=== PATIENT | male | born 1935 | race Caucasian/White ===

== ENCOUNTER → 2017-01-17 | Outpatient (CLI) | payer MEDICARE ==
[~2017-01-17] MED LIST: AMIO100T4 PO; AMLO5TAB2 PO; ATOR80TA75 PO; B12 PO; BICA50TA PO; CARV-39 PO; CARV25TA12 PO; CARV3.122 PO; CHOL200040 PO; COPP2CAP PO; DUTA1CPM4 PO; FURO-92 PO; FURO-93 PO; FURO20TA3 PO; HYDR-3240 PO; IPRA3AMP NPPB; LEVO100T5 PO; LEVO25TA4 PO; LEVO500T8 PO; LOSA100T6 PO; METH4TAB2 PO; MULT-717 PO; NAPR500T3 PO; NITR0.4T SL; OMEP40CA6 PO; OXYB5TAB7 PO; OXYC5CAP4 PO; PRED5TAB PO; TIOT18CA INH; potassium PO
[2017-01-17 14:48] LABS: BLOOD UREA NITROGEN 22 mg/dL (7-18)
[2017-01-17 14:51] LABS: ASPARTATE AMINO TRANSFERASE 15 U/L (15-37)
[2017-01-17 14:56] LABS: HIV 1&2 ANTIBODY SCREEN Nonreactive (Nonreactive); HIV-1 p24 ANTIGEN Nonreactive (Nonreactive)
== END | disposition home or self-care (01) ==
LOC: STAR 13:02
PROVIDERS: ATTEND Orthopaedic Surgery
DX: Z01.818 Encounter for other preprocedural examination (principal); M17.12 Unilateral primary osteoarthritis, left knee; Z79.899 Other long term (current) drug therapy
CPT/HCPCS: 36415; 80053; 81001; 85025; 86703; 87077; 87081; 87086; 87147; 87899; 93005; G0435

== ENCOUNTER → 2017-02-06 | Outpatient (CLI) | payer MEDICARE | END | disposition home or self-care (01) | LOC: RAD 14:08 | PROVIDERS: ATTEND Nurse Practitioner Family | DX: N20.0 Calculus of kidney (principal); N28.1 Cyst of kidney, acquired | CPT/HCPCS: 74176 ==

== ENCOUNTER → 2017-03-13 | Outpatient (CLI) | payer MEDICARE ==
[~2017-03-13] MED LIST changes: +ATOR-2 PO; -ATOR80TA75 PO; +OXYC5CAP2 PO; -OXYC5CAP4 PO
== END | disposition home or self-care (01) ==
LOC: CFH 14:24
PROVIDERS: ATTEND Internal Medicine Cardiovascular Disease
DX: J84.10 Pulmonary fibrosis, unspecified (principal)
CPT/HCPCS: 71020

== ENCOUNTER 2017-04-16 06:13 | Inpatient (IN) | payer MEDICARE ==
[~2017-04-16] VITALS: Ht 175.3 cm; Wt 96.6 kg
[2017-04-16] MEDS ORDERED: VANCOMYCIN PMX 1GM/200ML 200 ML IV STA (06:38)
[2017-04-16] MEDS ORDERED: LIDOCAINE 1%, 2ML ONE (06:41)
[2017-04-16] MEDS ORDERED: KETOROLAC 60 MG/2 ML ONE (06:52)
[2017-04-16] MEDS ORDERED: TRANEXAMIC ACID 100 MG/ML, 10ML ONE (06:52)
[2017-04-16] MEDS ORDERED: EPINEPHRINE 1 MG/ML, 1ML ONE (06:53)
[2017-04-16] MEDS ORDERED: SODIUM CHLORIDE 0.9% 50 ML ONE (06:53)
[2017-04-16] MEDS ORDERED: ROPIvacaine/PF 0.2%, 20 ML ONE (06:53)
[2017-04-16] MEDS ORDERED: BACITRACIN 50,000 UNIT ONE (06:53)
[2017-04-16] MEDS ORDERED: morphine SULFATE/PF 1 MG/ML, 10ML ONE (06:53)
[2017-04-16] MEDS ORDERED: VANCOMYCIN 1,000 MG ONE (06:53)
[2017-04-16] MEDS ORDERED: FENTANYL PF 250 MCG/5ML ONE (07:09)
[2017-04-16] MEDS ORDERED: MIDAZOLAM 1 MG/ML, 2ML ONE (07:09)
[2017-04-16] MEDS ORDERED: LACTATED RINGERS 1,000 ML IV SCH (07:12)
[2017-04-16] MEDS ORDERED: LIDOCAINE 1%, 2ML SQ PRN (07:30)
[2017-04-16] MEDS ORDERED: METOPROLOL 1 MG/ML, 5ML ONE (07:40)
[2017-04-16] MEDS ORDERED: DIPHENHYDRAMINE 50 MG CAPSULE PO PRN (08:00)
[2017-04-16] MEDS ORDERED: LORazepam 2 MG/ML, 1ML IVPush PRN (08:00)
[2017-04-16] MEDS ORDERED: ONDANSETRON 2MG/ML, 2ML IVPush PRN (08:00)
[2017-04-16] MEDS ORDERED: TRANEXAMIC ACID 100 MG/ML, 10ML IVPB ONE (08:00)
[2017-04-16] MEDS ORDERED: ACETAMINOPHEN 325 MG TABLET PO PRN ×2 (08:00→08:30)
[2017-04-16] MEDS ORDERED: morphine SULFATE 10 MG/ML, 1ML IVPush PRN (08:00)
[2017-04-16] MEDS ORDERED: ZOLPIDEM 5MG TABLET PO PRN (08:00)
[2017-04-16] MEDS ORDERED: hydrALAzine 20 MG/ML, 1ML IV PRN (08:30)
[2017-04-16] MEDS ORDERED: HYDROmorphone 1 MG/ML, 1ML IV PRN (08:30)
[2017-04-16] MEDS ORDERED: OXYcodone 5 MG/5 ML ORAL.SOL UDC PO PRN (08:30)
[2017-04-16] MEDS ORDERED: PROMETHAZINE 25 MG/ML, 1ML IV PRN (08:30)
[2017-04-16] MEDS ORDERED: METOPROLOL 1 MG/ML, 5ML IV PRN (08:30)
[2017-04-16] MEDS ORDERED: ALBUTEROL/IPRATROPIUM 2.5MG/0.5MG, 3 ML NPPB PRN (08:30)
[2017-04-16] MEDS ORDERED: PROPOFOL 10 MG/ML, 20ML ONE (08:35)
[2017-04-16] MEDS ORDERED: ONDANSETRON 2MG/ML, 2ML ONE (08:35)
[2017-04-16] MEDS ORDERED: SUCCINYLCHOLINE 20 MG/ML, 10ML ONE (08:35)
[2017-04-16] MEDS ORDERED: ROCURONIUM 10 MG/ML ONE (08:35)
[2017-04-16] MEDS ORDERED: DEXAMETHASONE 4 MG/ML, 1ML ONE (08:35)
[2017-04-16] MEDS ORDERED: GLYCOPYRROLATE 0.2MG/1ML, 5ML ONE (08:35)
[2017-04-16] MEDS ORDERED: NEOSTIGMINE 1 MG/ML, 10ML ONE (08:35)
[2017-04-16] MEDS ORDERED: CEFAZOLIN 1,000 MG ONE (08:35)
[2017-04-16] MEDS ORDERED: HYDROmorphone 1 MG/ML, 1ML ONE ×2 (08:55→10:02)
[2017-04-16] MEDS ORDERED: ACETAMINOPHEN 650 MG/20.3 ML UDC ONE (10:01)
[2017-04-16] MEDS ORDERED: FENTANYL PF 100 MCG/2ML ONE (10:02)
[2017-04-16] MEDS ORDERED: OXYcodone 5 MG/5 ML ORAL.SOL UDC ONE (10:02)
[2017-04-16] MEDS: FENTANYL PF 100 MCG/2ML IV PRN ×2 (10:05→10:29)
[2017-04-16] MEDS ORDERED: TRANEXAMIC ACID 1,000 MG in SODIUM CHLORIDE 0.9% 100 ML IV ONE (10:30)
[2017-04-16] MEDS ORDERED: hydrALAzine 20 MG/ML, 1ML ONE (10:36)
[2017-04-16 11:58] VITALS: BP 119/65
[2017-04-16] MEDS: HYDROmorphone 1 MG/ML, 1ML IV PRN ×2 (13:12→15:39)
[2017-04-16] MEDS: D5%-0.45% NACL 1,000 ML IV SCH ×3 (13:15→19:51)
[2017-04-16] MEDS ORDERED: NITROGLYCERIN 0.4 MG BOTTLE (25 TABS) SL PRN (13:30)
[2017-04-16 14:00] VITALS: BP 127/70
[2017-04-16] MEDS: CEFAZOLIN PMX 1GM/50ML 50 ML IVPB SCH (16:54)
[2017-04-16] MEDS: OXYBUTYNIN CHLORIDE 5 MG TABLET PO SCH ×2 (16:58→21:27)
[2017-04-16] MEDS: CARVEDILOL 25 MG TABLET PO SCH (18:53)
[2017-04-16 19:56] VITALS: BP 168/78
[2017-04-16] MEDS: OXYcodone/APAP 7.5/325MG TABLET PO PRN (19:58)
[2017-04-16] MEDS ORDERED: ATORVASTATIN 80 MG TABLET PO SCH (21:00)
[2017-04-17 00:02] VITALS: BP 129/72
[2017-04-17] MEDS: D5%-0.45% NACL 1,000 ML IV SCH ×3 (03:00→13:00)
[2017-04-17] MEDS: OXYcodone/APAP 7.5/325MG TABLET PO PRN ×4 (04:02→14:40)
[2017-04-17 04:07] VITALS: BP 125/56
[2017-04-17] MEDS: CARVEDILOL 25 MG TABLET PO SCH (05:28)
[2017-04-17] MEDS ORDERED: LEVOTHYROXINE 100 MCG TABLET PO SCH (06:00)
[2017-04-17] MEDS: ALBUTEROL/IPRATROPIUM 2.5MG/0.5MG, 3 ML NPPB SCH ×3 (06:45→14:00)
[2017-04-17 07:18] VITALS: BP 130/67
[2017-04-17] MEDS ORDERED: ASPIRIN 325 MG TABLET EC PO SCH (08:00)
[2017-04-17] MEDS ORDERED: VANCOMYCIN PMX 1GM/200ML 200 ML IVPB ONE (08:00)
[2017-04-17] MEDS: CEFAZOLIN PMX 1GM/50ML 50 ML IVPB SCH ×2 (08:23)
[2017-04-17] MEDS: OXYBUTYNIN CHLORIDE 5 MG TABLET PO SCH (08:25)
[2017-04-17] MEDS ORDERED: CHOLECALCIFEROL 1,000 UNIT TABLET PO SCH (09:00)
[2017-04-17] MEDS ORDERED: DUTASTERIDE 0.5 MG CAPSULE PO SCH (09:00)
[2017-04-17] MEDS ORDERED: FUROSEMIDE 20 MG TABLET PO SCH (09:00)
[2017-04-17] MEDS ORDERED: BICALUTAMIDE 50 MG TABLET PO SCH (09:00)
[2017-04-17] MEDS ORDERED: AMIODARONE 200 MG TABLET PO SCH (09:00)
[2017-04-17] MEDS ORDERED: AMLODIPINE 5 MG TABLET PO SCH (09:00)
[2017-04-17] MEDS ORDERED: TAMSULOSIN 0.4 MG CAP.ER.24H PO SCH (09:00)
[2017-04-17] MEDS ORDERED: DOCUSATE 100 MG CAPSULE PO SCH (09:00)
[2017-04-17] MEDS ORDERED: CYANOCOBALAMIN 1,000 MCG TABLET PO SCH (09:00)
[2017-04-17] MEDS ORDERED: LOSARTAN 50MG TABLET PO SCH (09:00)
[2017-04-17] MEDS ORDERED: MULTIVITAMINS/MINERALS TABLET PO SCH (09:00)
[2017-04-17] MEDS ORDERED: OXYC-302 PO (14:58)
[2017-04-17 16:17] VITALS: BP 139/69
== END 2017-04-17 16:30 | disposition home or self-care (01) | DRG 470 ==
LOC: ORIP 06:13 → 4NOR 11:37
PROVIDERS: ADMIT Orthopaedic Surgery; ATTEND Orthopaedic Surgery
PROC: 0SRD0J9 Replacement of Left Knee Joint with Synthetic Substitute, Cemented, Open Approach (ICD-10-PCS; principal; 2017-04-16 07:30)
DX: M17.12 Unilateral primary osteoarthritis, left knee (principal); J96.10 Chronic respiratory failure, unspecified whether with hypoxia or hypercapnia; I50.22 Chronic systolic (congestive) heart failure; Z87.891 Personal history of nicotine dependence
CPT/HCPCS: 36415; 85018; 94640; C1713; J0171; J0690; J1100; J1170; J1885; J2250; J2274; J2405; J2704; J2710; J2795; J3010; J3370; J3490; J7620; C1776; J0330; J0360; J7120

== ENCOUNTER 2018-04-02 17:41 | Observation (INO) | payer MEDICARE ==
[~2018-04-02] VITALS: Ht 175.3 cm; Wt 99.0 kg
[~2018-04-02 17:41] MED LIST changes: +AMLO-150 PO; -AMLO5TAB2 PO; -BICA50TA PO; +BICA50TA5 PO; +EZET10TA18 PO; +FLUT1BLS3 INH; +HYDR5TAB2 PO; -IPRA3AMP NPPB; +IPRA3AMP30 NPPB; -LOSA100T6 PO; +LOSA100T7 PO; +NAPR-685 PO; -NAPR500T3 PO; +OXYC-302 PO
[2018-04-02] MEDS ORDERED: SODIUM CHLORIDE FLUSH 10ML SYR IVF ONE (18:00)
[2018-04-02 18:12] LABS: BASOPHILS # (AUTO) 0.02 x10^3/uL (0-0.1); BASOPHILS % (AUTO) 0 % (0-1); EOSINOPHILS # (AUTO) 0.15 x10^3/uL (0-0.4); EOSINOPHILS % (AUTO) 3 % (1-7); LYMPHOCYTES # (AUTO) 0.83 x10^3/uL (1-3.4); LYMPHOCYTES % (AUTO) 14 % (22-44); MD NO; MEAN CORPUSCULAR HEMOGLOBIN 30.9 pg (27.5-34.5); MEAN CORPUSCULAR HGB CONC 33.2 g/dL (33.2-36.2); MEAN CORPUSCULAR VOLUME 92.9 fL (81-97); MEAN PLATELET VOLUME 7.5 fL (7.4-10.4); MONOCYTES # (AUTO) 0.57 x10^3/uL (0.2-0.8); MONOCYTES % (AUTO) 9 % (2-9); NEUTROPHILS # (AUTO) 4.54 x10^3/uL (1.8-6.8); NEUTROPHILS % (AUTO) 74 % (42-75); PLATELET COUNT 315 x10^3/uL (130-400); RED BLOOD COUNT 3.95 x10^6/uL (4.38-5.82)
[2018-04-02 18:23] LABS: ALANINE AMINOTRANSFERASE 22 U/L (12-78); ALBUMIN 3.6 g/dL (3.4-5.0); ANION GAP 6 mmol/L (5-15); CALCIUM 8.7 mg/dL (8.5-10.1); CHLORIDE 106 mmol/L (98-107); CREATININE 1.08 mg/dL (0.7-1.3)
[2018-04-02 18:26] LABS: ALKALINE PHOSPHATASE 110 U/L (45-117); BILIRUBIN,TOTAL 0.3 mg/dL (0.2-1.0); TOTAL PROTEIN 7.7 g/dL (6.4-8.2)
[2018-04-02] MEDS ORDERED: CEFTAZIDIME PMX 2 GM/50ML 50 ML IV SCH (19:00)
[2018-04-02] MEDS ORDERED: SODIUM CHLORIDE 0.9% 1,000 ML IV SCH ×2 (19:45→20:30)
[2018-04-02] MEDS: CEFTAZIDIME PMX 2 GM/50ML 50 ML IV SCH (19:56)
[2018-04-02] MEDS ORDERED: NITROGLYCERIN 0.4 MG BOTTLE (25 TABS) SL PRN (20:00)
[2018-04-02] MEDS ORDERED: POLYETHYLENE GLYCOL 17 GM PACKET PO PRN (20:00)
[2018-04-02] MEDS ORDERED: ACETAMINOPHEN 325 MG TABLET PO PRN (20:00)
[2018-04-02] MEDS ORDERED: ONDANSETRON 2MG/ML, 2ML IVPush PRN (20:00)
[2018-04-02] MEDS: PLEASE ENTER HEIGHT MC SCH (21:00)
[2018-04-02] MEDS: ATORVASTATIN 80 MG TABLET PO SCH (21:00)
[2018-04-02 21:07] LABS: CULTURE INDICATED? YES; MICROSCOPIC AUTO
[2018-04-02 21:10] VITALS: BP 149/69
[2018-04-02] MEDS: HEPARIN 5,000 UNITS/ML, 1ML SQ SCH (21:20)
[2018-04-02] MEDS: CARVEDILOL 25 MG TABLET PO SCH (21:44)
[2018-04-03 01:39] VITALS: BP 155/72
[2018-04-03] MEDS: CEFTAZIDIME PMX 2 GM/50ML 50 ML IV SCH ×3 (03:07→19:11)
[2018-04-03] MEDS: PLEASE ENTER HEIGHT MC SCH ×4 (03:11→23:41)
[2018-04-03] MEDS: LEVOTHYROXINE 112 MCG TABLET PO SCH (06:06)
[2018-04-03] MEDS: HEPARIN 5,000 UNITS/ML, 1ML SQ SCH ×3 (06:06→21:11)
[2018-04-03 07:36] VITALS: BP 172/79
[2018-04-03] MEDS: CARVEDILOL 25 MG TABLET PO SCH ×2 (08:39→21:10)
[2018-04-03] MEDS: LOSARTAN 50MG TABLET PO SCH (08:39)
[2018-04-03] MEDS: DUTASTERIDE 0.5 MG CAPSULE PO SCH (08:39)
[2018-04-03] MEDS: TAMSULOSIN 0.4 MG CAP.ER.24H PO SCH (08:39)
[2018-04-03] MEDS: AMIODARONE 200 MG TABLET PO SCH (08:39)
[2018-04-03] MEDS: AMLODIPINE 5 MG TABLET PO SCH (08:40)
[2018-04-03] MEDS: EZETIMIBE 10 MG TABLET PO SCH (08:40)
[2018-04-03] MEDS: MULTIVITAMINS/MINERALS TABLET PO SCH (08:40)
[2018-04-03] MEDS ORDERED: TAMSULOSIN HCL PO SCH (09:00)
[2018-04-03] MEDS ORDERED: DUTASTERIDE PO SCH (09:00)
[2018-04-03] MEDS: (Fluticasone/Umeclidin/Vilanter (Trelegy Ellipta 100-62.5-25) INH SCH (09:00)
[2018-04-03] MEDS ORDERED: [UNRECOGNIZED DRUG - OTHER] PO SCH (09:00)
[2018-04-03] MEDS ORDERED: hydrALAzine 20 MG/ML, 1ML IV PRN (11:00)
[2018-04-03 12:44] VITALS: BP 122/66
[2018-04-03 18:47] VITALS: BP 149/70
[2018-04-03] MEDS: ATORVASTATIN 80 MG TABLET PO SCH (19:09)
[2018-04-04 01:39] VITALS: BP 157/68
[2018-04-04] MEDS: CEFTAZIDIME 2,000 MG in SODIUM CHLORIDE 0.9% 50 ML IVPB SCH ×2 (02:31→11:43)
[2018-04-04] MEDS: ALBUTEROL/IPRATROPIUM 2.5MG/0.5MG, 3 ML NPPB PRN ×2 (02:49→22:35)
[2018-04-04] MEDS: LEVOTHYROXINE 112 MCG TABLET PO SCH (05:27)
[2018-04-04] MEDS: HEPARIN 5,000 UNITS/ML, 1ML SQ SCH ×2 (05:27→16:51)
[2018-04-04 05:40] LABS: BASOPHILS # (AUTO) 0.04 x10^3/uL (0-0.1); BASOPHILS % (AUTO) 1 % (0-1); EOSINOPHILS # (AUTO) 0.23 x10^3/uL (0-0.4); EOSINOPHILS % (AUTO) 5 % (1-7); LYMPHOCYTES # (AUTO) 0.99 x10^3/uL (1-3.4); LYMPHOCYTES % (AUTO) 22 % (22-44); MD NO; MEAN CORPUSCULAR HEMOGLOBIN 30.7 pg (27.5-34.5); MEAN CORPUSCULAR HGB CONC 33.3 g/dL (33.2-36.2); MEAN CORPUSCULAR VOLUME 92.4 fL (81-97); MEAN PLATELET VOLUME 8.1 fL (7.4-10.4); MONOCYTES # (AUTO) 0.43 x10^3/uL (0.2-0.8); MONOCYTES % (AUTO) 10 % (2-9); NEUTROPHILS # (AUTO) 2.83 x10^3/uL (1.8-6.8); NEUTROPHILS % (AUTO) 63 % (42-75); PLATELET COUNT 279 x10^3/uL (130-400); RED BLOOD COUNT 3.93 x10^6/uL (4.38-5.82)
[2018-04-04 05:42] LABS: CHLORIDE 105 mmol/L (98-107)
[2018-04-04 06:01] LABS: ANION GAP 8 mmol/L (5-15); CALCIUM 8.9 mg/dL (8.5-10.1); CREATININE 1.04 mg/dL (0.7-1.3)
[2018-04-04 07:44] VITALS: BP 176/82
[2018-04-04] MEDS: AMLODIPINE 5 MG TABLET PO SCH ×2 (08:31→20:47)
[2018-04-04] MEDS: MULTIVITAMINS/MINERALS TABLET PO SCH (08:31)
[2018-04-04] MEDS: TAMSULOSIN 0.4 MG CAP.ER.24H PO SCH (08:31)
[2018-04-04] MEDS: LOSARTAN 50MG TABLET PO SCH (08:31)
[2018-04-04] MEDS: CARVEDILOL 25 MG TABLET PO SCH ×2 (08:32→20:47)
[2018-04-04] MEDS: (Fluticasone/Umeclidin/Vilanter (Trelegy Ellipta 100-62.5-25) INH SCH (08:32)
[2018-04-04] MEDS: AMIODARONE 200 MG TABLET PO SCH (08:32)
[2018-04-04] MEDS: DUTASTERIDE 0.5 MG CAPSULE PO SCH (08:33)
[2018-04-04] MEDS: EZETIMIBE 10 MG TABLET PO SCH (08:34)
[2018-04-04 12:55] VITALS: BP 137/73
[2018-04-04] MEDS: PLEASE ENTER HEIGHT MC SCH ×2 (13:00→21:00)
[2018-04-04] MEDS ORDERED: KETOROLAC 30 MG/1 ML IVPush ONE (16:00)
[2018-04-04 20:16] VITALS: BP 144/71
[2018-04-04] MEDS: ATORVASTATIN 80 MG TABLET PO SCH (20:47)
[2018-04-05] MEDS: HEPARIN 5,000 UNITS/ML, 1ML SQ SCH ×2 (00:24→08:30)
[2018-04-05 01:15] VITALS: BP 148/75
[2018-04-05] MEDS: PLEASE ENTER HEIGHT MC SCH (05:00)
[2018-04-05 06:03] LABS: ANION GAP 7 mmol/L (5-15); CALCIUM 8.7 mg/dL (8.5-10.1); CHLORIDE 103 mmol/L (98-107); CREATININE 0.88 mg/dL (0.7-1.3)
[2018-04-05 06:05] LABS: BASOPHILS # (AUTO) 0.08 x10^3/uL (0-0.1); BASOPHILS % (AUTO) 2 % (0-1); EOSINOPHILS # (AUTO) 0.22 x10^3/uL (0-0.4); EOSINOPHILS % (AUTO) 4 % (1-7); LYMPHOCYTES # (AUTO) 0.89 x10^3/uL (1-3.4); LYMPHOCYTES % (AUTO) 18 % (22-44); MD NO; MEAN CORPUSCULAR HEMOGLOBIN 31.3 pg (27.5-34.5); MEAN CORPUSCULAR HGB CONC 33.6 g/dL (33.2-36.2); MEAN CORPUSCULAR VOLUME 93.1 fL (81-97); MEAN PLATELET VOLUME 7.9 fL (7.4-10.4); MONOCYTES # (AUTO) 0.54 x10^3/uL (0.2-0.8); MONOCYTES % (AUTO) 11 % (2-9); NEUTROPHILS # (AUTO) 3.29 x10^3/uL (1.8-6.8); NEUTROPHILS % (AUTO) 66 % (42-75); PLATELET COUNT 300 x10^3/uL (130-400); RED BLOOD COUNT 3.76 x10^6/uL (4.38-5.82); RED CELL DISTRIBUTION WIDTH 14.6 % (9.4-14.8)
[2018-04-05] MEDS: LEVOTHYROXINE 112 MCG TABLET PO SCH (06:41)
[2018-04-05 07:18] VITALS: BP 147/73
[2018-04-05] MEDS: DUTASTERIDE 0.5 MG CAPSULE PO SCH (09:00)
[2018-04-05] MEDS: AMLODIPINE 5 MG TABLET PO SCH (09:00)
[2018-04-05] MEDS: (Fluticasone/Umeclidin/Vilanter (Trelegy Ellipta 100-62.5-25) INH SCH (09:00)
[2018-04-05] MEDS: TAMSULOSIN 0.4 MG CAP.ER.24H PO SCH (09:08)
[2018-04-05] MEDS: MULTIVITAMINS/MINERALS TABLET PO SCH (09:08)
[2018-04-05] MEDS: EZETIMIBE 10 MG TABLET PO SCH (09:09)
[2018-04-05] MEDS: CARVEDILOL 25 MG TABLET PO SCH (09:09)
[2018-04-05] MEDS: AMIODARONE 200 MG TABLET PO SCH (09:09)
[2018-04-05] MEDS: LOSARTAN 50MG TABLET PO SCH (09:09)
[2018-04-05] MEDS ORDERED: KETOROLAC 30 MG/1 ML IVPush ONE (09:30)
== END 2018-04-05 11:35 | disposition home or self-care (01) ==
LOC: ED 17:58 → INTOOBSV 19:06 → EDIP 19:06 → SUATTDRO 19:34 → 3NE 20:30 → DCLOUNGE 04-05 11:22
PROVIDERS: ADMIT Hospitalist; ATTEND Hospitalist
DX: B96.5 Pseudomonas (aeruginosa) (mallei) (pseudomallei) as the cause of diseases classified elsewhere (principal); R82.71 Bacteriuria; I10 Essential (primary) hypertension; E03.9 Hypothyroidism, unspecified; J44.9 Chronic obstructive pulmonary disease, unspecified; I25.10 Atherosclerotic heart disease of native coronary artery without angina pectoris; D64.9 Anemia, unspecified; I25.2 Old myocardial infarction; N40.0 Benign prostatic hyperplasia without lower urinary tract symptoms; N39.0 Urinary tract infection, site not specified; Z85.46 Personal history of malignant neoplasm of prostate; Z99.81 Dependence on supplemental oxygen; Z85.51 Personal history of malignant neoplasm of bladder; Z87.891 Personal history of nicotine dependence; Z87.11 Personal history of peptic ulcer disease; Z92.3 Personal history of irradiation; Z79.899 Other long term (current) drug therapy; Z87.440 Personal history of urinary (tract) infections
CPT/HCPCS: 36415; 71045; 74176; 80048; 80053; 81001; 84145; 85025; 87077; 87086; 87186; 93005; 94640; 96365; 96366; 96372; 96375; 96376; 97161; 97165; 99285; G0378; J0713; J1644; J1885; J7030; J7620; 96374

== ENCOUNTER 2018-04-30 18:30 | Inpatient (IN) | payer MEDICARE ==
[~2018-04-30] VITALS: Ht 175.3 cm; Wt 100.4 kg
[~2018-04-30 18:30] MED LIST changes: -AMLO-150 PO; +AMLO5TAB7 PO
[2018-04-30] MEDS ORDERED: DIPH,PERTUSS(ACELL),TET VAC/PF 0.5 ML IM-VACC ONE ×2 (19:00→19:04)
[2018-04-30] MEDS ORDERED: SODIUM CHLORIDE FLUSH 10ML SYR IVF ONE (19:00)
[2018-04-30] MEDS ORDERED: AMPICILLIN/SULBACTAM 3 GM in SODIUM CHLORIDE 0.9% 100 ML IV ONE (19:00)
[2018-04-30] MEDS ORDERED: SODIUM CHLORIDE 0.9% 1,000ML IVBOLUS ONE (19:00)
[2018-04-30 19:28] LABS: BASOPHILS # (AUTO) 0.02 x10^3/uL (0-0.1); BASOPHILS % (AUTO) 0 % (0-1); EOSINOPHILS # (AUTO) 0.07 x10^3/uL (0-0.4); EOSINOPHILS % (AUTO) 1 % (1-7); LYMPHOCYTES % (AUTO) 5 % (22-44); MD NO; MEAN CORPUSCULAR HEMOGLOBIN 31.3 pg (27.5-34.5); MEAN CORPUSCULAR HGB CONC 33.9 g/dL (33.2-36.2); MEAN CORPUSCULAR VOLUME 92.5 fL (81-97); MEAN PLATELET VOLUME 7.5 fL (7.4-10.4); MONOCYTES # (AUTO) 0.69 x10^3/uL (0.2-0.8); MONOCYTES % (AUTO) 5 % (2-9); NEUTROPHILS % (AUTO) 90 % (42-75); PLATELET COUNT 332 x10^3/uL (130-400); RED BLOOD COUNT 4.25 x10^6/uL (4.38-5.82); RED CELL DISTRIBUTION WIDTH 14.7 % (9.4-14.8)
[2018-04-30 19:40] LABS: ALANINE AMINOTRANSFERASE 22 U/L (12-78); ALBUMIN 3.6 g/dL (3.4-5.0); ANION GAP 8 mmol/L (5-15); CALCIUM 8.9 mg/dL (8.5-10.1); CHLORIDE 101 mmol/L (98-107)
[2018-04-30 19:42] LABS: ALKALINE PHOSPHATASE 129 U/L (45-117); BILIRUBIN,TOTAL 0.7 mg/dL (0.2-1.0)
[2018-04-30 21:56] VITALS: BP 166/78
[2018-04-30] MEDS ORDERED: VANCOMYCIN PMX 1GM/200ML 200 ML IV ONE (22:00)
[2018-04-30] MEDS ORDERED: HYDROmorphone 2 MG/ML, 1ML IVPush PRN (22:00)
[2018-04-30] MEDS ORDERED: ACETAMINOPHEN 325 MG TABLET PO PRN (22:00)
[2018-04-30] MEDS ORDERED: POLYETHYLENE GLYCOL 17 GM PACKET PO PRN (22:00)
[2018-04-30] MEDS ORDERED: PROMETHAZINE 25 MG/ML, 1ML IM PRN (22:00)
[2018-04-30] MEDS ORDERED: GABAPENTIN 300 MG CAPSULE PO PRN (22:00)
[2018-04-30] MEDS ORDERED: OXYcodone IR 5MG TABLET PO PRN (22:00)
[2018-04-30] MEDS ORDERED: hydrALAzine 20 MG/ML, 1ML IVPush PRN (22:00)
[2018-04-30] MEDS ORDERED: LABETALOL 5MG/ML, 20ML IVPush PRN (22:00)
[2018-04-30] MEDS ORDERED: VANCOMYCIN PER PHARMACY MC PRN (22:00)
[2018-04-30] MEDS ORDERED: ONDANSETRON ODT 4 MG PO PRN (22:00)
[2018-04-30] MEDS ORDERED: ONDANSETRON 2MG/ML, 2ML IVPush PRN (22:00)
[2018-04-30] MEDS ORDERED: BISACODYL 10 MG SUPP PR PRN (22:00)
[2018-04-30] MEDS ORDERED: NITROGLYCERIN 0.4 MG BOTTLE (25 TABS) SL PRN (22:30)
[2018-04-30 22:32] LABS: FREE T4 (FREE THYROXINE) 0.96 ng/dL (0.76-1.46); HEMOGLOBIN A1C 6.4 % (4.2-6.3); THYROID STIMULATING HORMONE 3.27 mIU/L (0.358-3.740)
[2018-04-30] MEDS: SODIUM CHLORIDE 0.9% 1,000 ML IV SCH (22:51)
[2018-04-30] MEDS: HYDROcodone/APAP 5/325 TABLET PO PRN (22:51)
[2018-04-30 22:57] LABS: HCT (SEDRATE) 39.3 % (39.2-51.8)
[2018-04-30] MEDS: PIPERACILLIN/TAZO/PMX 3.375GM 50 ML IV SCH (23:15)
[2018-04-30] MEDS: OMEPRAZOLE 20 MG CAPSULE.DR PO SCH (23:20)
[2018-04-30] MEDS: OXYBUTYNIN CHLORIDE 5 MG TABLET PO SCH (23:20)
[2018-04-30] MEDS: ATORVASTATIN 80 MG TABLET PO SCH (23:20)
[2018-04-30] MEDS: LACTOBACILLUS CHEW TABLET PO SCH (23:20)
[2018-04-30] MEDS: CARVEDILOL 25 MG TABLET PO SCH (23:20)
[2018-04-30] MEDS ORDERED: PHARMACOKINETIC CONSULTATION MC ONE (23:30)
[2018-04-30] MEDS ORDERED: PHARMACOKINETIC MONITORING MC PRN (23:30)
[2018-05-01] MEDS: VANCOMYCIN 1,800 MG in SODIUM CHLORIDE 0.9% 250 ML IV SCH (00:01)
[2018-05-01] MEDS ORDERED: ALBUTEROL SULFATE 2.5 MG/3 ML ONE (00:59)
[2018-05-01 01:57] VITALS: BP 97/57
[2018-05-01] MEDS: PIPERACILLIN/TAZO/PMX 3.375GM 50 ML IV SCH ×2 (05:23→11:31)
[2018-05-01 05:26] LABS: MEAN CORPUSCULAR HEMOGLOBIN 30.2 pg (27.5-34.5); MEAN CORPUSCULAR HGB CONC 32.7 g/dL (33.2-36.2); MEAN CORPUSCULAR VOLUME 92.6 fL (81-97); MEAN PLATELET VOLUME 7.7 fL (7.4-10.4); PLATELET COUNT 278 x10^3/uL (130-400); RED CELL DISTRIBUTION WIDTH 15.1 % (9.4-14.8)
[2018-05-01 05:52] LABS: BASOPHILS # (AUTO) 0.03 x10^3/uL (0-0.1); BASOPHILS % (AUTO) 0 % (0-1); EOSINOPHILS # (AUTO) 0.02 x10^3/uL (0-0.4); EOSINOPHILS % (AUTO) 0 % (1-7); LYMPHOCYTES # (AUTO) 0.67 x10^3/uL (1-3.4); LYMPHOCYTES % (AUTO) 6 % (22-44); MD SCAN; MONOCYTES # (AUTO) 1.09 x10^3/uL (0.2-0.8); MONOCYTES % (AUTO) 9 % (2-9); NEUTROPHILS # (AUTO) 10.21 x10^3/uL (1.8-6.8); NEUTROPHILS % (AUTO) 85 % (42-75)
[2018-05-01 05:54] LABS: CHLORIDE 103 mmol/L (98-107)
[2018-05-01 06:02] LABS: ALANINE AMINOTRANSFERASE 19 U/L (12-78); ALBUMIN 2.8 g/dL (3.4-5.0); ALKALINE PHOSPHATASE 128 U/L (45-117); ANION GAP 8 mmol/L (5-15); BILIRUBIN,TOTAL 0.8 mg/dL (0.2-1.0); CHOL/HDL RATIO 2.8; CHOLESTEROL, TOTAL 149 mg/dL (140-239); CREATININE 1.01 mg/dL (0.7-1.3); HDL CHOL % 36 % (26-37); HDL CHOLESTEROL (DIRECT) 53 mg/dL (40-60); LDL CHOLESTEROL,CALCULATED 80 mg/dL (54-169); LDL/HDL RATIO 1.5 (0.5-3.0); TOTAL PROTEIN 6.7 g/dL (6.4-8.2); TRIGLYCERIDES 81 mg/dL (50-200); VLDL CHOLESTEROL 16 mg/dL (0-25)
[2018-05-01 06:51] VITALS: BP 106/62
[2018-05-01] MEDS: LACTOBACILLUS CHEW TABLET PO SCH ×3 (08:20→21:24)
[2018-05-01] MEDS: LOSARTAN 50MG TABLET PO SCH (08:20)
[2018-05-01] MEDS: AMIODARONE 200 MG TABLET PO SCH (08:21)
[2018-05-01] MEDS: OMEPRAZOLE 20 MG CAPSULE.DR PO SCH ×2 (08:21→21:24)
[2018-05-01] MEDS: LEVOTHYROXINE 100 MCG TABLET PO SCH (08:21)
[2018-05-01] MEDS: TAMSULOSIN 0.4 MG CAP.ER.24H PO SCH (08:21)
[2018-05-01] MEDS: SENNA/DOCUSATE TABLET PO SCH (08:21)
[2018-05-01] MEDS: CYANOCOBALOMIN 100MCG TABLET PO SCH (08:22)
[2018-05-01] MEDS: CHOLECALCIFEROL 1,000 UNIT TABLET PO SCH (08:22)
[2018-05-01] MEDS: CARVEDILOL 25 MG TABLET PO SCH ×2 (08:22→21:24)
[2018-05-01] MEDS: MULTIVITAMIN 1 TABLET PO SCH (08:22)
[2018-05-01] MEDS: OXYBUTYNIN CHLORIDE 5 MG TABLET PO SCH ×3 (08:22→21:24)
[2018-05-01] MEDS: SODIUM CHLORIDE 0.9% 1,000 ML IV SCH (08:23)
[2018-05-01] MEDS: DUTASTERIDE 0.5 MG CAPSULE PO SCH (08:26)
[2018-05-01] MEDS ORDERED: AMLODIPINE 5 MG TABLET PO SCH (09:00)
[2018-05-01] MEDS: BICALUTAMIDE 50 MG TABLET PO SCH (09:00)
[2018-05-01] MEDS: ENOXAPARIN 40 MG/0.4 ML SQ SCH (11:31)
[2018-05-01] MEDS: HYDROcodone/APAP 5/325 TABLET PO PRN ×3 (11:37→21:24)
[2018-05-01 12:02] VITALS: BP 94/54
[2018-05-01 21:16] VITALS: BP 122/67
[2018-05-01 21:25] VITALS: BP 128/73
[2018-05-01] MEDS: ATORVASTATIN 80 MG TABLET PO SCH (21:25)
[2018-05-02] MEDS: VANCOMYCIN 1,800 MG in SODIUM CHLORIDE 0.9% 250 ML IV SCH ×2 (00:15→23:40)
[2018-05-02 01:51] VITALS: BP 107/63
[2018-05-02] MEDS: ALBUTEROL SULFATE 2.5 MG/3 ML NPPB PRN ×2 (04:35→19:13)
[2018-05-02] MEDS: BICALUTAMIDE 50 MG TABLET PO SCH (09:00)
[2018-05-02] MEDS: LOSARTAN 50MG TABLET PO SCH ×2 (09:00→09:23)
[2018-05-02] MEDS: CARVEDILOL 25 MG TABLET PO SCH ×2 (09:20→21:40)
[2018-05-02] MEDS: CHOLECALCIFEROL 1,000 UNIT TABLET PO SCH (09:21)
[2018-05-02] MEDS: OMEPRAZOLE 20 MG CAPSULE.DR PO SCH ×2 (09:22→21:40)
[2018-05-02] MEDS: SENNA/DOCUSATE TABLET PO SCH (09:22)
[2018-05-02] MEDS: OXYBUTYNIN CHLORIDE 5 MG TABLET PO SCH ×3 (09:23→21:43)
[2018-05-02] MEDS: TAMSULOSIN 0.4 MG CAP.ER.24H PO SCH (09:23)
[2018-05-02] MEDS: LEVOTHYROXINE 100 MCG TABLET PO SCH (09:24)
[2018-05-02] MEDS: AMIODARONE 200 MG TABLET PO SCH (09:25)
[2018-05-02] MEDS: LACTOBACILLUS CHEW TABLET PO SCH ×3 (09:26→21:40)
[2018-05-02] MEDS: MULTIVITAMIN 1 TABLET PO SCH (09:26)
[2018-05-02] MEDS: CYANOCOBALOMIN 100MCG TABLET PO SCH (09:27)
[2018-05-02] MEDS: HYDROcodone/APAP 5/325 TABLET PO PRN (09:29)
[2018-05-02] MEDS: ASPIRIN 81 MG TABLET EC PO SCH (09:32)
[2018-05-02 09:40] VITALS: BP 118/66
[2018-05-02] MEDS: DUTASTERIDE 0.5 MG CAPSULE PO SCH (10:12)
[2018-05-02] MEDS: ENOXAPARIN 40 MG/0.4 ML SQ SCH (12:18)
[2018-05-02 14:35] VITALS: BP 114/54
[2018-05-02 20:00] VITALS: BP 124/69
[2018-05-02 21:39] VITALS: BP 133/78
[2018-05-02] MEDS: ATORVASTATIN 80 MG TABLET PO SCH (21:40)
[2018-05-03] MEDS: ALBUTEROL SULFATE 2.5 MG/3 ML NPPB PRN ×2 (00:01→04:30)
[2018-05-03] MEDS: VANCOMYCIN 1,800 MG in SODIUM CHLORIDE 0.9% 250 ML IV SCH (00:44)
[2018-05-03 00:52] VITALS: BP 112/65
[2018-05-03 05:40] LABS: BASOPHILS # (AUTO) 0.02 x10^3/uL (0-0.1); BASOPHILS % (AUTO) 0 % (0-1); EOSINOPHILS # (AUTO) 0.27 x10^3/uL (0-0.4); EOSINOPHILS % (AUTO) 3 % (1-7); LYMPHOCYTES % (AUTO) 9 % (22-44); MD NO; MEAN CORPUSCULAR HGB CONC 33.3 g/dL (33.2-36.2); MEAN CORPUSCULAR VOLUME 93.2 fL (81-97); MEAN PLATELET VOLUME 7.9 fL (7.4-10.4); MONOCYTES # (AUTO) 0.91 x10^3/uL (0.2-0.8); MONOCYTES % (AUTO) 11 % (2-9); NEUTROPHILS # (AUTO) 6.21 x10^3/uL (1.8-6.8); NEUTROPHILS % (AUTO) 77 % (42-75); PLATELET COUNT 300 x10^3/uL (130-400); RED CELL DISTRIBUTION WIDTH 14.4 % (9.4-14.8)
[2018-05-03 05:43] LABS: ANION GAP 6 mmol/L (5-15); CALCIUM 8.3 mg/dL (8.5-10.1); CHLORIDE 104 mmol/L (98-107)
[2018-05-03 05:44] LABS: CREATININE 0.75 mg/dL (0.7-1.3)
[2018-05-03] MEDS: ASPIRIN 81 MG TABLET EC PO SCH (05:44)
[2018-05-03 06:50] VITALS: BP 152/72
[2018-05-03] MEDS: BICALUTAMIDE 50 MG TABLET PO SCH (08:37)
[2018-05-03] MEDS: SENNA/DOCUSATE TABLET PO SCH (08:38)
[2018-05-03] MEDS: MULTIVITAMIN 1 TABLET PO SCH (08:38)
[2018-05-03] MEDS: DUTASTERIDE 0.5 MG CAPSULE PO SCH (08:38)
[2018-05-03] MEDS: TAMSULOSIN 0.4 MG CAP.ER.24H PO SCH (08:38)
[2018-05-03] MEDS: OXYBUTYNIN CHLORIDE 5 MG TABLET PO SCH (08:38)
[2018-05-03] MEDS: LACTOBACILLUS CHEW TABLET PO SCH (08:38)
[2018-05-03] MEDS: AMIODARONE 200 MG TABLET PO SCH (08:39)
[2018-05-03] MEDS: CYANOCOBALOMIN 100MCG TABLET PO SCH (08:39)
[2018-05-03] MEDS: OMEPRAZOLE 20 MG CAPSULE.DR PO SCH (08:39)
[2018-05-03] MEDS: CARVEDILOL 25 MG TABLET PO SCH (08:39)
[2018-05-03] MEDS: LEVOTHYROXINE 100 MCG TABLET PO SCH (08:39)
[2018-05-03] MEDS: CHOLECALCIFEROL 1,000 UNIT TABLET PO SCH (08:39)
[2018-05-03] MEDS ORDERED: DOXY-228 PO (09:07)
[2018-05-03] MEDS ORDERED: AMOX1TAB64 PO (09:07)
[2018-05-03] MEDS: ENOXAPARIN 40 MG/0.4 ML SQ SCH (11:00)
[2018-05-03] MEDS: HYDROcodone/APAP 5/325 TABLET PO PRN (11:21)
== END 2018-05-03 11:58 | disposition home health service (06) | DRG 872 ==
LOC: ED 19:27 → EDIP 20:43 → 4EST 22:46 → DCLOUNGE 05-03 11:45
PROVIDERS: ADMIT Internal Medicine; ATTEND Internal Medicine
DX: A41.9 Sepsis, unspecified organism (principal); L03.114 Cellulitis of left upper limb; J96.10 Chronic respiratory failure, unspecified whether with hypoxia or hypercapnia; E87.1 Hypo-osmolality and hyponatremia; J96.11 Chronic respiratory failure with hypoxia; N39.0 Urinary tract infection, site not specified; E03.9 Hypothyroidism, unspecified; E78.5 Hyperlipidemia, unspecified; I10 Essential (primary) hypertension; I25.10 Atherosclerotic heart disease of native coronary artery without angina pectoris; I25.2 Old myocardial infarction; I48.2 Chronic atrial fibrillation; J44.9 Chronic obstructive pulmonary disease, unspecified; S61.459A Open bite of unspecified hand, initial encounter; W54.0XXA Bitten by dog, initial encounter; W54.8XXA Other contact with dog, initial encounter; Z85.46 Personal history of malignant neoplasm of prostate; Z85.51 Personal history of malignant neoplasm of bladder; Z85.828 Personal history of other malignant neoplasm of skin; Z86.14 Personal history of Methicillin resistant Staphylococcus aureus infection; Z87.440 Personal history of urinary (tract) infections; Z87.11 Personal history of peptic ulcer disease; Z87.891 Personal history of nicotine dependence; Z95.5 Presence of coronary angioplasty implant and graft; Z96.652 Presence of left artificial knee joint; Z99.81 Dependence on supplemental oxygen; M11.232 Other chondrocalcinosis, left wrist
CPT/HCPCS: 29125; 36415; 71046; 80048; 80053; 80061; 80202; 83036; 83605; 83735; 84145; 84439; 84443; 85025; 85651; 86140; 87040; 90471; 90715; 93005; 94640; 96365; G0378; J0295; J1650; J2543; J3370; J7613; J7030; J7050

== ENCOUNTER 2019-01-29 00:09 | Observation (INO) | payer MEDICARE ==
[~2019-01-29] VITALS: Ht 175.3 cm; Wt 92.5 kg
[~2019-01-29 00:09] MED LIST changes: +AMLO-150 PO; -AMLO5TAB7 PO; +AMOX1TAB64 PO; +DOXY-228 PO; -EZET10TA18 PO; +EZET10TA70 PO; -HYDR5TAB2 PO; +HYDR5TAB7 PO; +LOSA100T14 PO; -LOSA100T7 PO; -NITR0.4T SL; +NITR0.4T41 SL
--- NOTE | 2019-01-29 00:20 | NUR ---
PAIN IN BOTH LEGS, SWELLING IN THE RIGHT LEG. DENIES HX DVT, BLOOD THINNERS. PT HAS HX COPD, T2DM
--- NOTE | 2019-01-29 00:22 | NUR ---
ER PA HERMILO IN TO ASSESS PT
[2019-01-29] MEDS ORDERED: ACETAMINOPHEN 325 MG TABLET ONE (00:40)
--- NOTE | 2019-01-29 00:43 | NUR ---
US AT BEDSIDE. PT MEDCIATED FOR PAIN PER EMAR
[2019-01-29 00:45] LABS: BASOPHILS # (AUTO) 0.06 x10^3/uL (0-0.1); BASOPHILS % (AUTO) 1 % (0-1); EOSINOPHILS # (AUTO) 0.23 x10^3/uL (0-0.4); EOSINOPHILS % (AUTO) 3 % (1-7); LYMPHOCYTES # (AUTO) 0.87 x10^3/uL (1-3.4); LYMPHOCYTES % (AUTO) 11 % (22-44); MD NO; MEAN CORPUSCULAR HEMOGLOBIN 30.4 pg (27.5-34.5); MEAN CORPUSCULAR HGB CONC 32.6 g/dL (33.2-36.2); MEAN CORPUSCULAR VOLUME 93.3 fL (81-97); MEAN PLATELET VOLUME 7.4 fL (7.4-10.4); MONOCYTES # (AUTO) 0.73 x10^3/uL (0.2-0.8); MONOCYTES % (AUTO) 9 % (2-9); NEUTROPHILS # (AUTO) 6.15 x10^3/uL (1.8-6.8); NEUTROPHILS % (AUTO) 77 % (42-75); PLATELET COUNT 314 x10^3/uL (130-400); RED BLOOD COUNT 4.05 x10^6/uL (4.38-5.82); RED CELL DISTRIBUTION WIDTH 15.7 % (9.4-14.8)
[2019-01-29 00:54] LABS: INTERNATIONAL NORMALIZED RATIO 1.05 (0.93-1.1)
[2019-01-29] MEDS ORDERED: ACETAMINOPHEN 325 MG TABLET PO ONE (01:00)
[2019-01-29 01:06] LABS: CHLORIDE 104 mmol/L (98-107)
[2019-01-29 01:19] LABS: ALBUMIN 3.4 g/dL (3.4-5.0); ANION GAP 6 mmol/L (5-15); CALCIUM 9.1 mg/dL (8.5-10.1); CREATININE 0.89 mg/dL (0.7-1.3)
[2019-01-29 01:21] LABS: ALANINE AMINOTRANSFERASE 20 U/L (12-78); ALKALINE PHOSPHATASE 128 U/L (45-117); BILIRUBIN,TOTAL 1.3 mg/dL (0.2-1.0); TOTAL PROTEIN 7.9 g/dL (6.4-8.2)
[2019-01-29] MEDS ORDERED: MORPHINE SULFATE 4 MG/ML, 1ML IVPush PRN ×2 (01:30→02:00)
[2019-01-29] MEDS ORDERED: HEPARIN 5,000 UNITS/ML, 1ML IV ONE (02:00)
[2019-01-29] MEDS ORDERED: ONDANSETRON 2MG/ML, 2ML IVPush PRN ×2 (02:00→03:00)
[2019-01-29] MEDS ORDERED: HEPARIN 5,000 UNITS/ML, 1ML ONE (02:08)
[2019-01-29] MEDS ORDERED: HEPARIN 25,000 UNITS/500ML PMX 500 ML ONE (02:08)
[2019-01-29] MEDS: HEPARIN 25,000 UNITS/500ML PMX 500 ML IV PRN (02:22)
--- NOTE | 2019-01-29 02:29 | NUR ---
HEPARIN STARTED IN ED. PT REPORTS HE DOES NOT LIKE MORPHINE BECUASE IT MAKES HIM VIOLENT
[2019-01-29] MEDS ORDERED: HYDROcodone/APAP 5/325 TABLET ONE (02:37)
--- NOTE | 2019-01-29 02:44 | NUR ---
report given to anastasiia gonzales
[2019-01-29] MEDS ORDERED: morphine SULFATE 10 MG/ML, 1ML IVPush PRN (03:00)
[2019-01-29] MEDS ORDERED: hydrALAzine 20 MG/ML, 1ML IVPush PRN (03:00)
[2019-01-29] MEDS ORDERED: POLYETHYLENE GLYCOL 17 GM PACKET PO PRN (03:00)
[2019-01-29] MEDS ORDERED: PROMETHAZINE 25 MG/ML, 1ML IM PRN (03:00)
[2019-01-29] MEDS ORDERED: HYDROcodone/APAP 5/325 TABLET PO ONE (03:00)
[2019-01-29] MEDS ORDERED: ONDANSETRON ODT 4 MG PO PRN (03:00)
[2019-01-29] MEDS ORDERED: BISACODYL 10 MG SUPP PR PRN (03:00)
[2019-01-29] MEDS ORDERED: OXYcodone IR 5MG TABLET PO PRN (03:00)
[2019-01-29 03:03] VITALS: BP 136/74
[2019-01-29 03:43] LABS: FREE T4 (FREE THYROXINE) 1.19 ng/dL (0.76-1.46)
[2019-01-29 03:56] LABS: HEMOGLOBIN A1C 5.9 % (4.2-6.3)
[2019-01-29 06:42] VITALS: BP 116/68
[2019-01-29] MEDS: LEVOTHYROXINE 100 MCG TABLET PO SCH (07:02)
[2019-01-29] MEDS: FAMOTIDINE 20 MG/2 ML IVPush SCH ×2 (08:43→21:03)
[2019-01-29] MEDS: HYDROcodone/APAP 5/325 TABLET PO PRN ×3 (08:43→21:28)
[2019-01-29] MEDS: AMLODIPINE 5 MG TABLET PO SCH (08:43)
[2019-01-29] MEDS: MULTIVITAMINS/MINERALS TABLET PO SCH (08:43)
[2019-01-29] MEDS: LOSARTAN 50MG TABLET PO SCH (08:43)
[2019-01-29] MEDS: POTASSIUM CHLORIDE 20 MEQ TAB.ER.PRT PO SCH (08:44)
[2019-01-29] MEDS: CARVEDILOL 25 MG TABLET PO SCH ×2 (08:44→21:03)
[2019-01-29] MEDS: FUROSEMIDE 20 MG TABLET PO SCH (08:44)
[2019-01-29] MEDS: AMIODARONE 200 MG TABLET PO SCH (08:44)
[2019-01-29] MEDS: CYANOCOBALAMIN 1,000 MCG TABLET PO SCH (08:44)
[2019-01-29] MEDS: CHOLECALCIFEROL 1,000 UNIT TABLET PO SCH (08:45)
[2019-01-29] MEDS: SENNA/DOCUSATE TABLET PO SCH (08:45)
[2019-01-29] MEDS: BICALUTAMIDE 50 MG TABLET PO SCH (08:46)
[2019-01-29] MEDS ORDERED: HYDROCORTISONE 5 MG TABLET PO SCH (09:00)
[2019-01-29] MEDS: HEPARIN 5,000 UNITS/ML, 1ML IV PRN ×3 (09:33→23:47)
[2019-01-29 15:34] VITALS: BP 123/49
[2019-01-29] MEDS ORDERED: ALBUTEROL/IPRATROPIUM 2.5MG/0.5MG, 3 ML ONE (17:11)
[2019-01-29] MEDS: ALBUTEROL/IPRATROPIUM 2.5MG/0.5MG, 3 ML NPPB SCH ×2 (17:15→20:00)
[2019-01-29 18:49] VITALS: BP 135/65
[2019-01-29] MEDS: BUDESONIDE 0.5 MG/2 ML INHA INH SCH (20:48)
[2019-01-29] MEDS: ATORVASTATIN 80 MG TABLET PO SCH (21:03)
[2019-01-29] MEDS ORDERED: DIPHENHYDRAMINE 25 MG CAPSULE PO PRN (23:30)
[2019-01-29] MEDS ORDERED: ACETAMINOPHEN 325 MG TABLET PO PRN (23:30)
[2019-01-30] MEDS: ALBUTEROL/IPRATROPIUM 2.5MG/0.5MG, 3 ML NPPB SCH ×5 (00:03→21:11)
[2019-01-30 01:01] VITALS: BP 123/66
[2019-01-30] MEDS: HEPARIN 25,000 UNITS/500ML PMX 500 ML IV PRN ×2 (01:12→20:10)
[2019-01-30 06:03] LABS: BASOPHILS # (AUTO) 0.08 x10^3/uL (0-0.1); BASOPHILS % (AUTO) 1 % (0-1); EOSINOPHILS # (AUTO) 0.14 x10^3/uL (0-0.4); EOSINOPHILS % (AUTO) 2 % (1-7); LYMPHOCYTES # (AUTO) 0.89 x10^3/uL (1-3.4); LYMPHOCYTES % (AUTO) 14 % (22-44); MD NO; MEAN CORPUSCULAR HEMOGLOBIN 30.5 pg (27.5-34.5); MEAN CORPUSCULAR HGB CONC 32.7 g/dL (33.2-36.2); MEAN CORPUSCULAR VOLUME 93.2 fL (81-97); MEAN PLATELET VOLUME 7.4 fL (7.4-10.4); MONOCYTES # (AUTO) 0.59 x10^3/uL (0.2-0.8); MONOCYTES % (AUTO) 9 % (2-9); NEUTROPHILS # (AUTO) 4.73 x10^3/uL (1.8-6.8); NEUTROPHILS % (AUTO) 74 % (42-75); PLATELET COUNT 296 x10^3/uL (130-400); RED CELL DISTRIBUTION WIDTH 15.6 % (9.4-14.8)
[2019-01-30 06:20] LABS: CHLORIDE 101 mmol/L (98-107)
[2019-01-30] MEDS: LEVOTHYROXINE 100 MCG TABLET PO SCH (06:30)
[2019-01-30 06:44] LABS: ALANINE AMINOTRANSFERASE 17 U/L (12-78); ALBUMIN 2.8 g/dL (3.4-5.0); ALKALINE PHOSPHATASE 109 U/L (45-117); ANION GAP 5 mmol/L (5-15); BILIRUBIN,TOTAL 0.4 mg/dL (0.2-1.0); CALCIUM 8.8 mg/dL (8.5-10.1); CHOL/HDL RATIO 3.4; CHOLESTEROL, TOTAL 152 mg/dL (140-239); HDL CHOL % 30 % (26-37); HDL CHOLESTEROL (DIRECT) 45 mg/dL (40-60); LDL CHOLESTEROL,CALCULATED 86 mg/dL (54-169); LDL/HDL RATIO 1.9 (0.5-3.0); TOTAL PROTEIN 7.2 g/dL (6.4-8.2); TRIGLYCERIDES 103 mg/dL (50-200); VLDL CHOLESTEROL 21 mg/dL (0-25)
[2019-01-30 07:00] VITALS: BP 137/74
[2019-01-30] MEDS: BUDESONIDE 0.5 MG/2 ML INHA INH SCH ×2 (07:40→21:11)
[2019-01-30] MEDS: FAMOTIDINE 20 MG/2 ML IVPush SCH (08:55)
[2019-01-30] MEDS: CHOLECALCIFEROL 1,000 UNIT TABLET PO SCH (08:55)
[2019-01-30] MEDS: BICALUTAMIDE 50 MG TABLET PO SCH (08:56)
[2019-01-30] MEDS: MULTIVITAMINS/MINERALS TABLET PO SCH (08:57)
[2019-01-30] MEDS: LOSARTAN 50MG TABLET PO SCH (08:57)
[2019-01-30] MEDS: CARVEDILOL 25 MG TABLET PO SCH ×2 (08:57→21:43)
[2019-01-30] MEDS: FUROSEMIDE 20 MG TABLET PO SCH (08:57)
[2019-01-30] MEDS: AMLODIPINE 5 MG TABLET PO SCH (08:57)
[2019-01-30] MEDS: POTASSIUM CHLORIDE 20 MEQ TAB.ER.PRT PO SCH (08:58)
[2019-01-30] MEDS: CYANOCOBALAMIN 1,000 MCG TABLET PO SCH (08:58)
[2019-01-30] MEDS: AMIODARONE 200 MG TABLET PO SCH (08:58)
[2019-01-30] MEDS: SENNA/DOCUSATE TABLET PO SCH (08:58)
[2019-01-30] MEDS: HYDROcodone/APAP 5/325 TABLET PO PRN ×3 (11:32→21:43)
[2019-01-30] MEDS: HEPARIN 5,000 UNITS/ML, 1ML IV PRN (12:29)
[2019-01-30 13:20] VITALS: BP 104/54
[2019-01-30 20:29] VITALS: BP 149/84
[2019-01-30] MEDS: FAMOTIDINE 20 MG TABLET PO SCH (21:43)
[2019-01-30] MEDS: ATORVASTATIN 80 MG TABLET PO SCH (21:43)
[2019-01-31] MEDS: HEPARIN 5,000 UNITS/ML, 1ML IV PRN (02:19)
[2019-01-31 03:29] VITALS: BP 135/62
[2019-01-31] MEDS: HYDROcodone/APAP 5/325 TABLET PO PRN ×2 (06:00→10:37)
[2019-01-31] MEDS: LEVOTHYROXINE 100 MCG TABLET PO SCH (06:00)
[2019-01-31 06:24] VITALS: BP 133/79
[2019-01-31] MEDS: BUDESONIDE 0.5 MG/2 ML INHA INH SCH (06:37)
[2019-01-31] MEDS: ALBUTEROL/IPRATROPIUM 2.5MG/0.5MG, 3 ML NPPB SCH ×3 (06:37→14:55)
[2019-01-31] MEDS: SENNA/DOCUSATE TABLET PO SCH (08:38)
[2019-01-31] MEDS: CHOLECALCIFEROL 1,000 UNIT TABLET PO SCH (08:39)
[2019-01-31] MEDS: BICALUTAMIDE 50 MG TABLET PO SCH (08:39)
[2019-01-31] MEDS: POTASSIUM CHLORIDE 20 MEQ TAB.ER.PRT PO SCH (08:40)
[2019-01-31] MEDS: AMLODIPINE 5 MG TABLET PO SCH (08:40)
[2019-01-31] MEDS: LOSARTAN 50MG TABLET PO SCH (08:40)
[2019-01-31] MEDS: MULTIVITAMINS/MINERALS TABLET PO SCH (08:41)
[2019-01-31] MEDS: CYANOCOBALAMIN 1,000 MCG TABLET PO SCH (08:41)
[2019-01-31] MEDS: AMIODARONE 200 MG TABLET PO SCH (08:41)
[2019-01-31] MEDS: FUROSEMIDE 20 MG TABLET PO SCH (08:41)
[2019-01-31] MEDS: CARVEDILOL 25 MG TABLET PO SCH (08:41)
[2019-01-31] MEDS: FAMOTIDINE 20 MG TABLET PO SCH (08:42)
[2019-01-31] MEDS ORDERED: APIX5TAB PO (11:39)
[2019-01-31 12:36] VITALS: BP 131/71
[2019-02-27] MEDS ORDERED: CARV6.252 PO (21:51)
[2019-02-28] MEDS ORDERED: EZET10TA48 PO (00:04)
[2019-02-28] MEDS ORDERED: VITA1TAB68 PO (05:42)
[2019-02-28] MEDS ORDERED: FLUT1BLS3 IH (05:42)
[2019-03-05] MEDS ORDERED: CEFT2FRO2 IV (12:38)
== END 2019-01-31 15:44 | disposition home or self-care (01) ==
LOC: ED 01:07 → INTOOBSV 01:57 → EDIP 01:57 → 4NOR 03:00 → DCLOUNGE 01-31 15:37
PROVIDERS: ADMIT Internal Medicine; ATTEND Internal Medicine
DX: I82.411 Acute embolism and thrombosis of right femoral vein (principal); J96.10 Chronic respiratory failure, unspecified whether with hypoxia or hypercapnia; D64.9 Anemia, unspecified; I25.10 Atherosclerotic heart disease of native coronary artery without angina pectoris; J44.9 Chronic obstructive pulmonary disease, unspecified; E03.9 Hypothyroidism, unspecified; I10 Essential (primary) hypertension; E78.5 Hyperlipidemia, unspecified; I25.2 Old myocardial infarction; I48.2 Chronic atrial fibrillation; N39.0 Urinary tract infection, site not specified; Z85.46 Personal history of malignant neoplasm of prostate; Z85.51 Personal history of malignant neoplasm of bladder; Z87.891 Personal history of nicotine dependence; Z95.5 Presence of coronary angioplasty implant and graft; Z96.652 Presence of left artificial knee joint; Z99.81 Dependence on supplemental oxygen; Z87.11 Personal history of peptic ulcer disease; Z90.01 Acquired absence of eye; Z79.899 Other long term (current) drug therapy; Z88.5 Allergy status to narcotic agent
CPT/HCPCS: 36415; 80053; 80061; 83036; 83735; 84439; 84443; 85025; 85520; 85610; 85730; 93005; 93306; 93971; 94640; 96365; 96366; 96375; 96376; 97116; 97161; 97166; 97535; 99284; G0378; J1644; J3490; J7620; J7626; Q0163; 96374

== ENCOUNTER 2019-05-31 11:21 | Emergency (ER) | payer MEDICARE ==
[~2019-05-31] VITALS: Ht 175.3 cm; Wt 91.5 kg
[~2019-05-31 11:21] MED LIST changes: +ALBU8.5H8 INH; +APIX5TAB PO; +CARV6.252 PO; +CEFT2FRO2 IV; +CIPR500T87 PO; +EZET10TA48 PO; +FLUT1BLS3 IH; +IPRA3AMP30 HHN; +LIDO700A20 TD; +OMEP40CA42 PO; -OMEP40CA6 PO; +OXYB5TAB10 PO; -OXYB5TAB7 PO; +VITA1TAB68 PO
[2019-05-31 12:03] LABS: BASOPHILS # (AUTO) 0.03 x10^3/uL (0-0.1); BASOPHILS % (AUTO) 0 % (0-1); EOSINOPHILS % (AUTO) 1 % (1-7); LYMPHOCYTES # (AUTO) 0.69 x10^3/uL (1-3.4); LYMPHOCYTES % (AUTO) 8 % (22-44); MD NO; MEAN CORPUSCULAR HEMOGLOBIN 27.7 pg (27.5-34.5); MEAN CORPUSCULAR VOLUME 86.8 fL (81-97); MEAN PLATELET VOLUME 7.1 fL (7.4-10.4); MONOCYTES # (AUTO) 0.58 x10^3/uL (0.2-0.8); MONOCYTES % (AUTO) 7 % (2-9); NEUTROPHILS # (AUTO) 6.97 x10^3/uL (1.8-6.8); NEUTROPHILS % (AUTO) 83 % (42-75); PLATELET COUNT 423 x10^3/uL (130-400); RED BLOOD COUNT 3.26 x10^6/uL (4.38-5.82)
[2019-05-31 12:09] LABS: INTERNATIONAL NORMALIZED RATIO 1.06 (0.93-1.1); PROTHROMBIN TIME 11.1 Seconds (9.6-11.5)
[2019-05-31 12:10] LABS: ALANINE AMINOTRANSFERASE 16 U/L (12-78); ALBUMIN 2.6 g/dL (3.4-5.0); ANION GAP 7 mmol/L (5-15); CALCIUM 8.7 mg/dL (8.5-10.1); CHLORIDE 103 mmol/L (98-107)
[2019-05-31 12:13] LABS: ALKALINE PHOSPHATASE 105 U/L (45-117); BILIRUBIN,TOTAL 0.3 mg/dL (0.2-1.0); CREATININE 1.29 mg/dL (0.7-1.3); TOTAL PROTEIN 8.2 g/dL (6.4-8.2)
[2019-05-31 12:21] VITALS: BP 129/73
--- NOTE | 2019-05-31 13:05 | NUR ---
ssds mk 2 advanced operator: Pt's family member given written & verbal prescription, DC & follow-up instructions, both verbalize comprehension of instructions. Pt's family member requesting to speak to Becca ESPAÑA prior to departing ED.
== END 2019-05-31 13:40 | disposition home or self-care (01) ==
LOC: ED 12:01
DX: I82.512 Chronic embolism and thrombosis of left femoral vein (principal); J44.9 Chronic obstructive pulmonary disease, unspecified; I25.10 Atherosclerotic heart disease of native coronary artery without angina pectoris; I25.2 Old myocardial infarction; E03.9 Hypothyroidism, unspecified; Z85.46 Personal history of malignant neoplasm of prostate; Z98.61 Coronary angioplasty status; Z85.51 Personal history of malignant neoplasm of bladder; Z88.6 Allergy status to analgesic agent
CPT/HCPCS: 36415; 80053; 85025; 85610; 85730; 99284

== ENCOUNTER → 2019-08-21 | Outpatient (CLI) | payer MEDICARE ==
[~2019-08-21] MED LIST changes: +OMNIPAQUE 350 MG/ML, 100ML BOTTLE ONE
== END | disposition home or self-care (01) ==
LOC: CFH 12:05
PROVIDERS: ATTEND Radiology Radiation Oncology
DX: C67.1 Malignant neoplasm of dome of bladder (principal); R19.03 Right lower quadrant abdominal swelling, mass and lump; R59.9 Enlarged lymph nodes, unspecified; N13.39 Other hydronephrosis
CPT/HCPCS: 74177; Q9967